=== PATIENT | female | born 1985 | race Caucasian/White ===

== ENCOUNTER 2017-01-28 09:05 | Emergency (ER) | payer OTHER ==
[2017-01-28] MEDS ORDERED: ONDANSETRON 4 MG/2 ML VIAL IVPUSH ONE ×2 (09:17→09:18)
[2017-01-28] MEDS ORDERED: SODIUM CHLORIDE 1,000 ML IV STA (09:17)
[2017-01-28] MEDS ORDERED: HYOSCYAMINE SULFATE 0.125 MG *ODT PO ONE (09:17)
[2017-01-28 09:22] VITALS: BP 116/77; PULSE 95; TEMP 99.1; BMI 29.6
[2017-01-28] MEDS ORDERED: FAMOTIDINE 20 MG/50 ML IVPB 50 ML IVPB ONE ×2 (09:22→09:54)
--- NOTE | 2017-01-28 09:33 | PDOC ---
History of Present Illness - General Chief Complaint: Vomiting/Diarrhea Stated Complaint: N/V DIARRHEA Time Seen by Provider: 01/28/17 09:07 History Source: Patient Exam Limitations: No Limitations - History of Present Illness Travel History: No Initial Comments: 01/28/17 09:20 This pt is a 31 yo F with no significant past medical history who presents to the ER with a complaint of nausea, vomiting, diarrhea and abdominal pain Pt symptoms began yesterday but were mild At approximately 3pm, her symptoms worsened such that she had almost intractable diarrhea and vomiting since 3am Last episode of vomiting, in the ER no fevers no recent travel no ill contacts no change in diet, she did have shrimp yesterday but other members of her family did as well and they are not ill Pt has abdominal pain which she describe 01/28/17 09:34 PMH: denies PSH: denies Meds: denies ALL: NKDA Social: denies GENERAL/CONSTITUTIONAL: Yes: loss of appetite No: fever, chills, weakness CARDIOVASCULAR: No: lightheadedness RESPIRATORY: No: cough, shortness of breath. GASTROINTESTINAL: Yes: nausea, vomiting, diarrhea, abdominal pain GENITOURINARY: No: dysuria, hematuria, frequency, urgency, flank pain. MUSCULOSKELETAL: No: back pain SKIN: No: lesions, pallor, rash NEUROLOGIC: No: headache GENERAL: The patient is in no acute distress. HEAD: Normal with no signs of trauma. EYES: PERRLA, EOMI, sclera anicteric, conjunctiva clear. ENT: Ears normal, nares patent, oropharynx clear without exudates. Dry mucous membranes. NECK: Normal range of motion, supple without lymphadenopathy, JVD, or masses. LUNGS: Breath sounds equal, clear to auscultation bilaterally. No wheezes, and no crackles. HEART:Regular rate and rhythm, normal S1 and S2 without murmur, rub or gallop. ABDOMEN: Soft, epigastric tenderness to palpation, no involuntary guarding or rebound, no RLQ tenderness EXTREMITIES: Normal range of motion, no edema. No clubbing or cyanosis. No erythema, or tenderness. NEUROLOGICAL: Cranial nerves II through XII grossly intact. Normal speech. MUSCULOSKELETAL: Back non-tender to palpation, no CVA tenderness SKIN: Warm, Dry, normal turgor, no rashes or lesions noted. 01/28/17 12:09 Past History - Past Medical History Allergies/Adverse Reactions: Allergies Allergy/AdvReac Type Severity Reaction Status Date / Time No Known Allergies Allergy Verified 02/18/16 13:43 Home Medications: Ambulatory Orders Hyoscyamine Odt [Levsin Odt -] 0.125 mg PO DAILY #7 tab.rapdis 01/28/17 Ondansetron HCl [Zofran] 4 mg PO BID PRN #14 tablet 01/28/17 Asthma: No Cancer: No Cardiac Disorders: No Diabetes: No HTN: No Suicide Attempt (Hx): No Seizures: No Thyroid Disease: No - Psycho/Social/Smoking Cessation Hx Anxiety: No Suicidal Ideation: No Smoking History: Never smoked Have you smoked in the past 12 months: No Hx Alcohol Use: No Drug/Substance Use Hx: No Substance Use Type: None Hx Substance Use Treatment: No *Physical Exam - Vital Signs Last Vital Signs Temp Pulse Resp BP Pulse Ox 99.1 F 95 H 16 116/77 100 01/28/17 09:06 01/28/17 09:06 01/28/17 09:06 01/28/17 09:06 01/28/17 09:06 ED Treatment Course - LABORATORY CBC & Chemistry Diagram: 01/28/17 09:20 01/28/17 09:20 Medical Decision Making - Medical Decision Making 01/28/17 09:40 Pt presents with nausea, vomiting, diarrhea DD: gastroenteritis, colitis, early appendicitis, pancreatitis Will do labs Will give zofran, pepcid and hyocyamine will re asssess 01/28/17 11:01 Laboratory Tests 01/28/17 01/28/17 09:20 09:20 WBC 19.0 H D Hgb 13.8 D Hct 40.6 D Plt Count 353 D Serum , Qual Negative 01/28/17 11:16 Laboratory Tests 01/28/17 09:20 Sodium 136 Potassium 4.4 D Chloride 104 Carbon Dioxide 23 Anion Gap 9 BUN 12 Creatinine 0.5 L Random Glucose 119 H Total Amylase 73 Lipase 31 01/28/17 12:10 Pt states she feels better Will discharge to home I have given her zofran and hyocyamine for home Pt given strict return precautions including... return for RLQ pain or tenderness, fevers, inability to tolerate foods or liquids any other concerns or complaints *DC/Admit/Observation/Transfer Diagnosis at time of Disposition: Vomiting and diarrhea - Discharge Dispostion Disposition: HOME Condition at time of disposition: Stable Admit: No - Prescriptions Prescriptions: Hyoscyamine Odt [Levsin Odt -] 0.125 mg PO DAILY #7 tab.rapdis Ondansetron HCl [Zofran] 4 mg PO BID PRN #14 tablet PRN Reason: Nausea - Referrals Referrals: Stephanie Bryan MD [Primary Care Provider] - - Patient Instructions Printed Discharge Instructions: Nausea and Vomiting-Adult, Diarrhea Additional Instructions: Thank you for coming in to the ER today Please take medications as prescribed Please return to the ER for pain or tenderness in the right lower abdomen, fevers, no improvement in symptoms, inability to tolerate foods or liquids, any other concerns or complaints - Post Discharge Activity Work/School Note: Back to Work, Parent(s) Back to Work Note
[2017-01-28] MEDS ORDERED: HYOSCYAMINE SULFATE 0.125 MG *ODT ONE (09:54)
[2017-01-28] MEDS ORDERED: ONDANSETRON 4 MG/2 ML VIAL ONE (09:54)
[2017-01-28 10:26] LABS: BASOPHIL 0.3 % (0-2.0); EOSINOPHIL 0.1 % (0-4.5); MEAN CELL VOLUME 82.4 fl (80-96); MEAN PLT VOLUME 9.6 fl (7.5-11.1); NEUTROPHILS 89.3 % (42.8-82.8); PLATELET COUNT 353 K/MM3 (134-434); RDW 13.4 % (11.6-15.6)
[2017-01-28 10:34] LABS: ALBUMIN 4.2 g/dl (3.5-5.0); ALK PHOS 92 U/L (32-92); AMYLASE 73 U/L (25-125); ANION GAP 9 (8-16); BILIRUBIN,TOTAL 0.5 mg/dl (0.2-1.0); CALCIUM 9.4 mg/dl (8.4-10.2); CO2 23 mmol/L (22-28); CREATININE 0.5 mg/dl (0.6-1.3); GLUCOSE,RANDOM 119 mg/dl (74-106); SGOT/AST 18 U/L (10-42); SGPT/ALT 16 U/L (10-40); TOT PROT 7.5 g/dl (6.4-8.3)
== END 2017-01-28 12:30 | disposition home or self-care (01) ==
LOC: SUPCPDRO 09:05 → FER 09:05
PROC: 3E033GC Introduction of Other Therapeutic Substance into Peripheral Vein, Percutaneous Approach (ICD-10-PCS; principal; 2017-01-28)
PROC: 3E0337Z Introduction of Electrolytic and Water Balance Substance into Peripheral Vein, Percutaneous Approach (ICD-10-PCS; 2017-01-28)
DX: R19.7 Diarrhea, unspecified (principal); R11.10 Vomiting, unspecified
CPT/HCPCS: 36415; 80053; 82150; 83690; 84703; 85025; 99282-25

== ENCOUNTER 2019-01-14 13:15 | Inpatient (IN) | payer OTHER ==
[2019-01-15] MEDS ORDERED: DINOPROSTONE 10 MG VAGINAL SUPPOSITORY VG ONE (21:00)
[2019-01-15] MEDS: ELECTROLYTE-148 SOLN 1,000 ML IV SCH (21:00)
--- NOTE | 2019-01-15 21:04 | HP ---
Past Medical History - Primary Care Physician PCP:: Emmett Zurita - Admission Chief Complaint: 39 weeks, GDM, LGA ,for cervidil induction History of Present Illness: 33 yo f with hx of GDM, on oral hypoglycemia , LGA .admitted for cervidil induction , no pain, fhr cat 1, no contraction,EFW 9 lb, risks of induction discussed , ulternatives and c/s explained History Source: Patient Limitations to Obtaining History: No Limitations - Past Medical History ...: 4 ...Para: 3 ...Term: 3 ...: 0 ...Spon : 0 ...Induced : 0 ...LMP: 04/20/18 ... Weeks Gestation by Dates: 39 ...EDC by Dates: 01/25/19 ...EDC by Sono: 01/21/19 - Past Surgical History Hx Myomectomy: No Hx Transabdominal Cerclage: No - Smoking History Smoking history: Never smoked Have you smoked in the past 12 months: No - Alcohol/Substance Use Hx Alcohol Use: No - Social History Usual Living Arrangement: Yes: With Spouse History of Recent Travel: No Home Medications - Allergies Allergies/Adverse Reactions: Allergies Allergy/AdvReac Type Severity Reaction Status Date / Time No Known Allergies Allergy Verified 01/15/19 21:05 - Home Medications Home Medications: Ambulatory Orders Glyburide/Metformin HCl [Glyburide-Metformin 2.5-500 mg] 2.5 mg PO DAILY Glyburide/Metformin HCl [Glyburide-Metformin 2.5-500 mg] 5 mg PO HS 12/02/18 Vitamins (Sjr) - 1 tab PO DAILY 12/02/18 Review of Systems - Review of Systems Constitutional: reports: No Symptoms Eyes: reports: No Symptoms HENT: reports: No Symptoms Neck: reports: No Symptoms Respiratory: reports: No Symptoms Gastrointestinal: reports: No Symptoms Genitourinary: reports: No Symptoms Breasts: reports: No Symptoms Reported Musculoskeletal: reports: No Symptoms Integumentary: reports: No Symptoms Neurological: reports: No Symptoms Endocrine: reports: No Symptoms Hematology/Lymphatic: reports: No Symptoms Psychiatric: reports: No Symptoms Physical Exam - Maternity Vital Signs: Vital Signs Temperature 98.2 F 01/14/19 13:43 Pulse Rate 78 01/14/19 13:43 Respiratory Rate 18 01/14/19 13:43 Blood Pressure 116/78 01/14/19 13:43 O2 Sat by Pulse Oximetry (%) Constitutional: Yes: Obese - Abdominal Exam/OB Fundal Height: 40 Number of Fetuses: Single Presentation: Vertex Contractions: No Heart Rate Location: [facility] Category: I Accelerations: Uniform Decelerations: None - Vaginal Exam/OB Vaginal Bleediing: No Speculum Exam: No Dilatation (cm): 1cm Effacement (%): 25 Amniotic Membrane Status: Intact Presentation: Vertex/Position Station: -3 - Physical Exam Edema: Yes Edema: LLE: Trace, RLE: Trace Deep Tendon Reflex Grade: Normal +2 ...Motor Strength: WNL Psychiatric: Yes: WNL Hemorrhage Risk Assessment - Risk Factors Medium Risk Factors: Yes: None High Risk Factors: Yes: None Risk Score: 1 Risk Level: Medium Risk Problem List - Problems (1) with 39 completed weeks gestation Code(s): Z3A.39 - 39 WEEKS GESTATION OF (2) Gestational diabetes mellitus (GDM) Code(s): O24.419 - GESTATIONAL DIABETES MELLITUS IN , UNSP CONTROL Qualifiers: Gestational diabetes mellitus control: oral hypoglycemic-controlled (3) Gestational diabetes Code(s): O24.419 - GESTATIONAL DIABETES MELLITUS IN , UNSP CONTROL Qualifiers: Trimester: third trimester (4) Multigravida in third trimester Code(s): Z34.83 - ENCOUNTER FOR SUPRVSN OF NORMAL , THIRD TRIMESTER Assessment/Plan plan admit, fhm, cervidil induction, risks associated with induction, LGA baby discussed
[2019-01-15 21:23] LABS: BASO % 0.4 % (0-2.0); EOS % 0.6 % (0-4.5); HEMATOCRIT 34.3 % (32.4-45.2); HEMOGLOBIN 11.3 GM/dL (10.7-15.3); LYMPH % 19.4 % (8-40); MCH 28.3 pg (25.7-33.7); MCHC 33.1 g/dl (32.0-36.0); MEAN CELL VOLUME 85.5 fl (80-96); MEAN PLT VOLUME 10.3 fl (7.5-11.1); MONO % 6.7 % (3.8-10.2); NEUT % 72.9 % (42.8-82.8); PLATELET COUNT 242 K/MM3 (134-434); RBC 4.01 M/mm3 (3.60-5.2); RDW 15.3 % (11.6-15.6); WHITE BLOOD COUNT 9.7 K/mm3 (4.0-10.0)
[2019-01-15 21:47] LABS: ANION GAP 9 MMOL/L (8-16); BLOOD UREA NITROGEN 10 mg/dL (7-18); CALCIUM 8.6 mg/dL (8.5-10.1); CHLORIDE 108 mmol/L (98-107); CO2 20 mmol/L (21-32); CREATININE 0.5 mg/dL (0.55-1.3); GLUCOSE,RANDOM 124 mg/dL (74-106); POTASSIUM 3.9 mmol/L (3.5-5.1); SODIUM 137 mmol/L (136-145)
[2019-01-15 21:50] LABS: INR 0.98 (0.83-1.09); PROTHROMBIN TIME (PATIENT) 11.6 SEC (9.7-13.0)
[2019-01-15 21:53] LABS: ACTIVATED PTT 28.3 SECONDS (25.2-36.5)
[2019-01-15 22:49] VITALS: BMI 35.0
[2019-01-16] MEDS ORDERED: PROMETHAZINE HCL 25 MG/1 ML VIAL IVPUSH ONE (08:44)
[2019-01-16] MEDS ORDERED: BUTORPHANOL TARTRATE 1 MG/ML VIAL IVPUSH PRN (08:44)
--- NOTE | 2019-01-16 08:44 | PN ---
Progress Note (short form) - Note Progress Note: 735 am cx 2 cm, 70 vx -3 , mi, fhr cat 1, irregular contraction , cervidil removed, advised pitocin, risks discussed Problem List - Problems (1) with 39 completed weeks gestation Code(s): Z3A.39 - 39 WEEKS GESTATION OF (2) Gestational diabetes mellitus (GDM) Code(s): O24.419 - GESTATIONAL DIABETES MELLITUS IN , UNSP CONTROL Qualifiers: Gestational diabetes mellitus control: oral hypoglycemic-controlled (3) Gestational diabetes Code(s): O24.419 - GESTATIONAL DIABETES MELLITUS IN , UNSP CONTROL Qualifiers: Trimester: third trimester (4) Multigravida in third trimester Code(s): Z34.83 - ENCOUNTER FOR SUPRVSN OF NORMAL , THIRD TRIMESTER
[2019-01-16] MEDS ORDERED: OXYTOCIN 30 UNITS in 0.9% NS 30 UNIT/500 ML INFUS.BAG IVPB SCH (08:45)
[2019-01-16] MEDS: ELECTROLYTE-148 SOLN 1,000 ML IV SCH (14:08)
[2019-01-16] MEDS ORDERED: NALOXONE HCL 0.4 MG/ML VIAL IVPUSH PRN (16:24)
[2019-01-16] MEDS ORDERED: FENTANYL/BUPIVACAINE/NS/PF - PCEA - 50 ML DISP.SYRIN EP SCH (16:30)
--- NOTE | 2019-01-16 17:54 | PN ---
Progress Note (short form) - Note Progress Note: 215 PM cx 4cm 70 vx -2 mi, fhar cat 1, regular contraction , AROM clear fluid , fhr cat 1 Problem List - Problems (1) with 39 completed weeks gestation Code(s): Z3A.39 - 39 WEEKS GESTATION OF (2) Gestational diabetes mellitus (GDM) Code(s): O24.419 - GESTATIONAL DIABETES MELLITUS IN , UNSP CONTROL Qualifiers: Gestational diabetes mellitus control: oral hypoglycemic-controlled (3) Gestational diabetes Code(s): O24.419 - GESTATIONAL DIABETES MELLITUS IN , UNSP CONTROL Qualifiers: Trimester: third trimester (4) Multigravida in third trimester Code(s): Z34.83 - ENCOUNTER FOR SUPRVSN OF NORMAL , THIRD TRIMESTER
--- NOTE | 2019-01-16 17:55 | PN ---
Progress Note (short form) - Note Progress Note: cx 6 cm 80 vx -2 mr, fhr cat 1, regular contraction , has epidural ,wants top off Problem List - Problems (1) with 39 completed weeks gestation Code(s): Z3A.39 - 39 WEEKS GESTATION OF (2) Gestational diabetes mellitus (GDM) Code(s): O24.419 - GESTATIONAL DIABETES MELLITUS IN , UNSP CONTROL Qualifiers: Gestational diabetes mellitus control: oral hypoglycemic-controlled (3) Gestational diabetes Code(s): O24.419 - GESTATIONAL DIABETES MELLITUS IN , UNSP CONTROL Qualifiers: Trimester: third trimester (4) Multigravida in third trimester Code(s): Z34.83 - ENCOUNTER FOR SUPRVSN OF NORMAL , THIRD TRIMESTER
--- NOTE | 2019-01-16 19:31 | PN ---
Progress Note (short form) - Note Progress Note: cx 9 cm, 100 vx -2 mr, fhr cat 1, contraction q 2 min Problem List - Problems (1) with 39 completed weeks gestation Code(s): Z3A.39 - 39 WEEKS GESTATION OF (2) Gestational diabetes mellitus (GDM) Code(s): O24.419 - GESTATIONAL DIABETES MELLITUS IN , UNSP CONTROL Qualifiers: Gestational diabetes mellitus control: oral hypoglycemic-controlled (3) Gestational diabetes Code(s): O24.419 - GESTATIONAL DIABETES MELLITUS IN , UNSP CONTROL Qualifiers: Trimester: third trimester (4) Multigravida in third trimester Code(s): Z34.83 - ENCOUNTER FOR SUPRVSN OF NORMAL , THIRD TRIMESTER
[2019-01-16] MEDS ORDERED: WITCH HAZEL 50% (TUCKS) 40 PAD/JAR PAD TP PRN (20:49)
[2019-01-16] MEDS ORDERED: BENZOCAINE 28 GM HEMORRHOIDAL OINTMENT TP PRN (20:49)
[2019-01-16] MEDS ORDERED: METHYLERGONOVINE MALEATE 0.2 MG/1 ML AMP IM PRN (20:49)
[2019-01-16] MEDS ORDERED: BISACODYL 10 MG SUPP.RECT RC PRN (20:49)
[2019-01-16] MEDS ORDERED: BENZOCAINE 20% 57 GM BOTTLE TP PRN (20:49)
--- NOTE | 2019-01-16 20:53 | PN ---
Delivery - Delivery Vaginal Delivery: No Problems, Spontaneous Episiotomy/Laceration: Periurethral Extnsion/lac (ant. and posterior shoulder with no difficulty . live baby girl 9/9 , first degree laceartion repaired , no complication, ebl 300 cc) Delivery, Single - Feeding Plan Initial Plan: Elected not to breastfeed exclusively throughout hospitalization
[2019-01-16] MEDS ORDERED: OXYTOCIN 20 UNITS in 0.9% NS 20 UNIT/1,000 ML INFUS.BAG IV SCH (21:00)
[2019-01-16] MEDS ORDERED: D5W-LR W/ 20 UNITS OXYTOCIN 20 UNIT/1,000 ML INFUS.BAG IV SCH (21:00)
[2019-01-16 21:30] LABS: VENOUS PH 7.33 (7.31-7.41); VENOUS PO2 28.4 mmHg (30-40)
[2019-01-16 21:31] LABS: ARTERIAL BLOOD GAS BASE EXCESS -4.1 meq/l (-2-2); ARTERIAL BLOOD GAS PCO2 52.3 mmHg (35-45); ARTERIAL BLOOD GAS pH 7.26 (7.35-7.45)
[2019-01-16 21:33] LABS: ARTERIAL BLOOD GAS PO2 20.6 mmHg (80-105)
[2019-01-16] MEDS: ACETAMINOPHEN 325 MG TABLET (FP) PO PRN (23:54)
[2019-01-16] MEDS: IBUPROFEN 600 MG TABLET (FP) PO PRN (23:54)
[2019-01-17 07:45] LABS: BASO % 0.2 % (0-2.0); EOS % 0.1 % (0-4.5); HEMATOCRIT 33.4 % (32.4-45.2); LYMPH % 13.5 % (8-40); MCH 28.2 pg (25.7-33.7); MCHC 32.9 g/dl (32.0-36.0); MEAN CELL VOLUME 85.8 fl (80-96); MEAN PLT VOLUME 10.2 fl (7.5-11.1); MONO % 5.4 % (3.8-10.2); NEUT % 80.8 % (42.8-82.8); PLATELET COUNT 223 K/MM3 (134-434); RDW 15.3 % (11.6-15.6)
[2019-01-17] MEDS: PRENATAL VITAMINS W/ FOLIC ACID TABLET (FP) PO SCH (09:16)
[2019-01-17] MEDS: FERROUS SO4 325 MG TABLET (FP) PO SCH ×2 (09:16→17:38)
[2019-01-17] MEDS ORDERED: DIPHTH,PERTUSS(ACELL),TET 0.5 ML DISP.SYRIN IM ONE (10:00)
[2019-01-17] MEDS ORDERED: FLU VACCINE QUAD 60 MCG/0.5 ML (MDV 18-19) IM ONE (10:00)
--- NOTE | 2019-01-17 10:15 | PN ---
Post Progress Note - Subjective Subjective: 33 yo Para 4, status post vaginal delivery, seen and evaluated. Doing well. Post Day: 1 Type of Delivery: Vital Signs: Vital Signs Temperature 98.3 F 01/17/19 08:48 Pulse Rate 79 01/17/19 08:48 Respiratory Rate 20 01/17/19 08:48 Blood Pressure 115/68 01/17/19 08:48 O2 Sat by Pulse Oximetry (%) 100 01/16/19 22:19 Breast Exam: Yes: Soft Uterus: Yes: Fundus Firm Abdomen/GI: Yes: Abdomen soft, Tolerating PO Lochia: Yes: Rubra Lochia, amount: Moderate Extremities: Yes: Calves non-tender Activity: Ambulating - Labs Labs: CBC WBC 15.0 K/mm3 (4.0-10.0) H 01/17/19 06:30 RBC 3.90 M/mm3 (3.60-5.2) 01/17/19 06:30 Hgb 11.0 GM/dL (10.7-15.3) 01/17/19 06:30 Hct 33.4 % (32.4-45.2) 01/17/19 06:30 MCV 85.8 fl (80-96) 01/17/19 06:30 MCH 28.2 pg (25.7-33.7) 01/17/19 06:30 MCHC 32.9 g/dl (32.0-36.0) 01/17/19 06:30 RDW 15.3 % (11.6-15.6) 01/17/19 06:30 Plt Count 223 K/MM3 (134-434) 01/17/19 06:30 MPV 10.2 fl (7.5-11.1) 01/17/19 06:30 Absolute Neuts (auto) 12.1 K/mm3 (1.5-8.0) H 01/17/19 06:30 Neutrophils % 80.8 % (42.8-82.8) 01/17/19 06:30 Lymphocytes % 13.5 % (8-40) D 01/17/19 06:30 Monocytes % 5.4 % (3.8-10.2) 01/17/19 06:30 Eosinophils % 0.1 % (0-4.5) D 01/17/19 06:30 Basophils % 0.2 % (0-2.0) 01/17/19 06:30 Nucleated RBC % 0 % (0-0) 01/17/19 06:30 Problem List - Problems (1) Status post vaginal delivery Code(s): AYR0421 - Assessment/Plan Status post vaginal delivery Stable Continue routine care
[2019-01-17] MEDS: ACETAMINOPHEN 325 MG TABLET (FP) PO PRN (20:33)
[2019-01-17] MEDS: IBUPROFEN 600 MG TABLET (FP) PO PRN (20:33)
[2019-01-17 21:01] VITALS: TEMP 98.6
[2019-01-17] MEDS ORDERED: SENNOSIDES/DOCUSATE COMBO (SENNA PLUS) TABLET (UD) PO PRN (22:00)
--- NOTE | 2019-01-18 06:08 | PN ---
Post Progress Note Type of Delivery: Vital Signs: Vital Signs Temperature 98.6 F 01/17/19 21:00 Pulse Rate 92 H 01/17/19 21:00 Respiratory Rate 18 01/17/19 21:00 Blood Pressure 139/70 01/17/19 21:00 O2 Sat by Pulse Oximetry (%) 100 01/16/19 22:19 Breast Exam: Yes: Soft Uterus: Yes: Fundus Firm Abdomen/GI: Yes: Abdomen soft Lochia: Yes: Rubra Lochia, amount: Small Extremities: Yes: Calves non-tender Perineum: Yes: Intact Activity: Ambulating - Labs Labs: CBC WBC 15.0 K/mm3 (4.0-10.0) H 01/17/19 06:30 RBC 3.90 M/mm3 (3.60-5.2) 01/17/19 06:30 Hgb 11.0 GM/dL (10.7-15.3) 01/17/19 06:30 Hct 33.4 % (32.4-45.2) 01/17/19 06:30 MCV 85.8 fl (80-96) 01/17/19 06:30 MCH 28.2 pg (25.7-33.7) 01/17/19 06:30 MCHC 32.9 g/dl (32.0-36.0) 01/17/19 06:30 RDW 15.3 % (11.6-15.6) 01/17/19 06:30 Plt Count 223 K/MM3 (134-434) 01/17/19 06:30 MPV 10.2 fl (7.5-11.1) 01/17/19 06:30 Absolute Neuts (auto) 12.1 K/mm3 (1.5-8.0) H 01/17/19 06:30 Neutrophils % 80.8 % (42.8-82.8) 01/17/19 06:30 Lymphocytes % 13.5 % (8-40) D 01/17/19 06:30 Monocytes % 5.4 % (3.8-10.2) 01/17/19 06:30 Eosinophils % 0.1 % (0-4.5) D 01/17/19 06:30 Basophils % 0.2 % (0-2.0) 01/17/19 06:30 Nucleated RBC % 0 % (0-0) 01/17/19 06:30 Assessment/Plan ppd 2 doing well
[2019-01-18] MEDS: IBUPROFEN 600 MG TABLET (FP) PO PRN (08:37)
[2019-01-18] MEDS: ACETAMINOPHEN 325 MG TABLET (FP) PO PRN (08:38)
[2019-01-18] MEDS: FERROUS SO4 325 MG TABLET (FP) PO SCH (08:38)
[2019-01-18] MEDS: PRENATAL VITAMINS W/ FOLIC ACID TABLET (FP) PO SCH (09:18)
[2019-01-18 09:28] VITALS: BP 130/85; PULSE 81
== END 2019-01-18 12:45 | disposition home or self-care (01) | DRG 560 ==
LOC: JDEL 13:15 → JLDR 01-15 20:00 → J3W 01-16 23:15
PROVIDERS: ADMIT Obstetrics & Gynecology; ATTEND Obstetrics & Gynecology
PROC: 3E0P7VZ Introduction of Hormone into Female Reproductive, Via Natural or Artificial Opening (ICD-10-PCS; 2019-01-15)
PROC: 10E0XZZ Delivery of Products of Conception, External Approach (ICD-10-PCS; principal; 2019-01-16)
PROC: 0HQ9XZZ Repair Perineum Skin, External Approach (ICD-10-PCS; 2019-01-16)
DX: O24.425 Gestational diabetes mellitus in childbirth, controlled by oral hypoglycemic drugs (principal); O70.0 First degree perineal laceration during delivery; Z3A.39 39 weeks gestation of pregnancy; Z37.0 Single live birth
CPT/HCPCS: 36415; 36600; 59025; 59409; 80048; 82803; 82962; 85025; 85610; 85730; 86593; 86850; 86900; 86901; 90686; 90715; G0008

== ENCOUNTER 2019-04-25 04:38 | Day surgery (SDC) | payer OTHER ==
[2019-04-24 15:32] VITALS: BMI 36.2
[2019-04-25] MEDS ORDERED: LIDOCAINE HCL/PF 2% SDV 5ML VIAL ONE (07:55)
[2019-04-25] MEDS ORDERED: SUCCINYLCHOLINE CHLORIDE 200 MG/10 ML SYRINGE ONE (07:56)
[2019-04-25] MEDS ORDERED: PROPOFOL 20 ML ONE ×3 (07:56→08:21)
[2019-04-25] MEDS ORDERED: MIDAZOLAM HCL 2 MG/2 ML SINGLE DOSE VIAL ONE (07:57)
[2019-04-25] MEDS ORDERED: ROCURONIUM BROMIDE 50 MG/5 ML SYRINGE ONE ×2 (07:57)
[2019-04-25] MEDS ORDERED: DEXAMETHASONE SOD PHOSPHATE 4 MG/1 ML VIAL ONE (08:37)
[2019-04-25] MEDS ORDERED: GLYCOPYRROLATE 0.2 MG/1 ML VIAL ONE (08:46)
[2019-04-25] MEDS ORDERED: NEOSTIGMINE METHYLSULFATE 0.5 MG/ML - 10 ML MDV ONE (08:46)
[2019-04-25] MEDS ORDERED: oxyCODONE HCL 5 MG TABLET PO PRN (09:11)
[2019-04-25] MEDS ORDERED: ONDANSETRON 4 MG/2 ML VIAL IVPUSH PRN (09:11)
[2019-04-25] MEDS ORDERED: IBUPROFEN 800 MG/8 ML IJ IVPB PRN (09:11)
[2019-04-25] MEDS ORDERED: ACETAMINOPHEN 1000 MG/100 ML VIAL (NON FORMULARY) IVPB PRN (09:12)
[2019-04-25] MEDS ORDERED: LACTATED RINGERS SOLUTION 1,000 ML IV SCH (09:15)
--- NOTE | 2019-04-25 09:26 | HP ---
Past Medical History - Primary Care Physician PCP:: Emmett Zurita - Admission Chief Complaint: sterlization History of Present Illness: 33 yo f requesting sterlization, risks associated with procedure discussed , aware procedure is not reversiab;le, has failure risk and risks of ectopic History Source: Patient Limitations to Obtaining History: No Limitations - Past Medical History ...: 3 ...Para: 3 - Past Surgical History Hx Myomectomy: No Hx Transabdominal Cerclage: No - Smoking History Smoking history: Never smoked Have you smoked in the past 12 months: No - Alcohol/Substance Use Hx Alcohol Use: No History of Substance Use: reports: None - Social History History of Recent Travel: No Home Medications - Allergies Allergies/Adverse Reactions: Allergies Allergy/AdvReac Type Severity Reaction Status Date / Time No Known Allergies Allergy Verified 01/15/19 21:05 - Home Medications Home Medications: Ambulatory Orders Vitamins (Sjr) - 1 tab PO DAILY 12/02/18 Review of Systems - Review of Systems Constitutional: reports: No Symptoms Eyes: reports: No Symptoms HENT: reports: No Symptoms Neck: reports: No Symptoms Cardiovascular: reports: No Symptoms Respiratory: reports: No Symptoms Gastrointestinal: reports: No Symptoms Genitourinary: reports: No Symptoms Breasts: reports: No Symptoms Reported Musculoskeletal: reports: No Symptoms Integumentary: reports: No Symptoms Neurological: reports: No Symptoms Endocrine: reports: No Symptoms Hematology/Lymphatic: reports: No Symptoms 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 Vital Signs: Vital Signs Temperature 97.9 F 04/25/19 07:26 Pulse Rate 72 04/25/19 07:26 Respiratory Rate 16 04/25/19 07:26 Blood Pressure 103/69 04/25/19 07:26 O2 Sat by Pulse Oximetry (%) Constitutional: Yes: Well Nourished, No Distress, Calm Eyes: Yes: WNL, Conjunctiva Clear, EOM Intact HENT: Yes: WNL, Atraumatic, Normocephalic Neck: Yes: WNL, Supple, Trachea Midline Cardiovascular: Yes: WNL, Regular Rate and Rhythm Respiratory: Yes: WNL, Regular, CTA Bilaterally Gastrointestinal: Yes: WNL ...Rectal Exam: Yes: WNL Renal/: Yes: WNL Vaginal Exam: Yes: Normal Cervix: Yes: Normal Uterus: Yes: Normal Adnexa: Not Palpable: Left, Right Breast(s): Yes: WNL Musculoskeletal: Yes: WNL Extremities: Yes: WNL Edema: No Integumentary: Yes: WNL Neurological: Yes: WNL, Alert, Oriented ...Motor Strength: WNL Psychiatric: Yes: WNL, Alert, Oriented Problem List - Problem (1) Admission for sterilization Code(s): Z30.2 - ENCOUNTER FOR STERILIZATION Assessment/Plan laparoscopy tubal cauterization and ligation
--- NOTE | 2019-04-25 09:31 | OP ---
Operative Note - Note: Operative Date: 04/25/19 Pre-Operative Diagnosis: sterlization Operation: laparoscopic BTL Findings: both tubes, ovaries, uterus normal Surgeon: Emmett Zurita Anesthesia: General Specimens Removed: leeann Estimated Blood Loss (mls): 5 Drains & Tubes with Location: landin Drains, Volume Out (mls): 400 Blood Volume Replaced (mls): 0 Operative Report Dictated: Yes
[2019-04-25 11:06] VITALS: TEMP 97.4
[2019-04-25 14:59] VITALS: BP 100/60; PULSE 64
--- NOTE | 2019-05-02 21:12 | OP ---
DATE OF OPERATION: 04/25/2019 PREOPERATIVE DIAGNOSIS: Voluntary sterilization. POSTOPERATIVE DIAGNOSIS: Voluntary sterilization. PROCEDURE: Bilateral tubal cauterization and ligation. SURGEON: Emmett Zurita MD ANESTHESIA: General. ESTIMATED BLOOD LOSS: 15 mL. OPERATION: Patient was taken to operating room under adequate general anesthesia in dorsal lithotomy position. Examination under anesthesia revealed external genitalia to be normal; vagina was normal; cervix was clean, no lesion; uterus was normal size; adnexa, no masses were palpable. Then with a weighted speculum in the vagina, anterior lip of the cervix was grasped with a single-tooth tenaculum. Cervix was slightly dilated and uterine cavity was sounded to 8 cm, then Hulka was introduced into uterine cavity for manipulation. The patient was placed in dorsal lithotomy position for pelviscopy. A small infraumbilical skin incision was made. Veress needle was introduced, pneumoperitoneum established. A 5-mm trocar was introduced through the umbilical area and then the scope was introduced. Visualization of the upper abdomen showed normal pelvic organs, uterus normal size, both tubes and ovaries were normal. No cul-de-sac adhesion. Bladder was normal. No other abnormality was found. Then a 5-mm trocar introduced through the suprapubic area and then with LigaSure bipolar cautery, the tubes were cauterized in 3 portions, 2 cm apart, the same procedure repeated for opposite tube. No active bleeding was seen. Abdomen was emptied of gases, all the instruments withdrawn. Suprapubic and infraumbilical skin incisions were closed with interrupted sutures of 0 Vicryl and then 4-0 Biosyn interrupted suture. Patient tolerated procedure well, left the OR in good condition. Shaquille [id number]
== END 2019-04-25 13:00 | disposition home or self-care (01) ==
LOC: JASU-SURG 04:38
PROVIDERS: ATTEND Obstetrics & Gynecology
PROC: 0UL74ZZ Occlusion of Bilateral Fallopian Tubes, Percutaneous Endoscopic Approach (ICD-10-PCS; principal; 2019-04-25 08:00)
DX: Z30.2 Encounter for sterilization (principal)
CPT/HCPCS: 84703; 94760; J0131

== ENCOUNTER 2021-04-14 11:45 | Emergency (ER) | payer OTHER ==
[2021-04-14 11:57] VITALS: BP 113/73; PULSE 89; TEMP 97.8; BMI 36.2
[2021-04-14] MEDS ORDERED: IBUPROFEN 600 MG TABLET (FP) PO ONE ×2 (12:11→12:21)
== END 2021-04-14 12:55 | disposition home or self-care (01) ==
LOC: FER 11:45
DX: M67.874 Other specified disorders of tendon, left ankle and foot (principal)
CPT/HCPCS: 73610-TC-LT-FY; 99283-25

== ENCOUNTER 2022-09-02 16:57 | Emergency (ER) | payer OTHER ==
[2022-09-02 17:15] VITALS: BP 133/89; PULSE 83; RESP 18; TEMP 97.8; BMI 38.0
== END 2022-09-02 18:40 | disposition home or self-care (01) ==
LOC: FER 16:57
DX: U07.1 COVID-19 (principal)
CPT/HCPCS: 0241U-QW; 99283-25